=== PATIENT | female | born 1965 | race Caucasian/White ===

== ENCOUNTER 2020-07-23 14:27 | Emergency (ER) | payer OTHER, BC, SELFPAY ==
--- NOTE | ~2020-07-23 | XR_ITS ---
EXAMINATION: XR knee LT min 4V EXAM DATE: 07/23/2020 15:22 INDICATION: Initial encounter following injury, with pain of the left knee. TECHNIQUE: Left knee frontal, crosstable lateral, orthogonal oblique projections for interpretation. There is no prior study for comparison. FINDINGS: No evidence osteochondral defect or joint body in the left knee joint. There is mild left knee primary osteoarthritis. No joint effusion. There are no acute fractures or dislocations identi fied. There is no subcutaneous gas. The soft tissue is unremarkable. There are no radiopaque fore ign bodies. IMPRESSION: 1. Left knee exam without acute osseous findings. Reviewed, dictated and finalized at location A.
[2020-07-23 14:39] VITALS: BP 149/71; PULSE 63; RESP 16; TEMP 36.7; O2SAT 100
--- NOTE | 2020-07-23 15:03 | ED.LOWEXIN ---
HPI - Extremity Injury (Lower) General Chief Complaint: Extremity Injury, Lower Stated Complaint: L KNEE INJURY Time Seen by Provider: 07/23/20 15:03 Source: patient Mode of arrival: ambulatory Limitations: no limitations History of Present Illness HPI Narrative: Monica Lopez is a 54 yo female with a PMH of hypothyroid, sleep disturbance, who comes to [facility] for pain and lateral knee and lower extremity from a fall stepstool yesterday at work. Have lateral left knee pain that is exacerbated with severe flexion of the knee; states she feels like her knee is unsteady although walking appears to have a normal gait. She has been icing her knee and limiting stress on her knee Related Data Home Medications Medication Instructions Recorded Confirmed ascorbic acid (vitamin C) 500 mg PO DAILY 07/23/20 07/23/20 [Chewable Vitamin C] cetirizine [Zyrtec] 10 mg PO DAILY 07/23/20 07/23/20 ibuprofen 800 mg PO TID PRN 07/23/20 07/23/20 levothyroxine 100 mcg PO DAILY 07/23/20 07/23/20 melatonin 10 mg PO HS PRN 07/23/20 07/23/20 multivit with min-folic acid 1 tablet PO DAILY 07/23/20 07/23/20 [Adult Multivitamin Gummies] Allergies Allergy/AdvReac Type Severity Reaction Status Date / Time No Known Allergies Allergy Verified 07/23/20 14:36 Review of Systems Review of Systems: Narrative: CONSTITUTIONAL: Denies fever, chills, sweats. EYES: Denies visual changes, redness, discharge. ENT: Denies rhinorrhea, congestion, sore throat, otalgia. CARDIOVASCULAR: Denies chest pain, palpitations, edema. RESPIRATORY: Denies dyspnea, wheezing, cough GASTROINTESTINAL: Denies abdominal pain, nausea, vomiting, diarrhea. GENITOURINARY: Denies dysuria, hematuria, abnormal discharge SKIN: Denies rash or itching. NEUROLOGIC: Denies numbness, or focal weakness. PSYCHIATRIC: Denies anxiety or depression. Left lower extremity injury with left-sided knee pain PMFSH Past Medical History Medical History High cholesterol Hypothyroid Sleep disturbance Family History Family History Other High cholesterol Social History Social History (Updated 07/23/20 @ 15:12 by Gemini Roblero CNP) Smoking status: Never smoker Alcohol intake: never Comments At time of signature, I agree with nursing past medical, surgical, social and family history. There is no relevant family history pertinent to the presenting complaint. Exam Narrative: Exam Narrative: GENERAL: This is a well-nourished, well-developed patient, in mild distress. HEAD: normocephalic, atraumatic. EYES: Sclera and conjunctiva clear External ears normal. Hearing grossly intact. NOSE: External nose normal without nasal discharge, nares without redness, no rhinorrhea. THROAT: Mucous membranes moist, NECK: Neck supple, CARDIOVASCULAR: Regular rate and rhythm without murmurs, gallops, or rubs. RESPIRATORY: Clear to auscultation. Breath sounds equal bilaterally. No wheezes, rales, or rhonchi. GASTROINTESTINAL: Abdomen soft, SKIN: warm, intact with no suspicious lesions or rash, good texture and turgor. NEURO: awake, alert, and oriented to person, place and time. There were no obvious focal neurologic abnormalities. Steady gait EXTREMITIES: Normal range of motion on R, and leg pulling on left, flexion is to about 150 degrees, although patient has complaining of the knee feeling tight at this point. She has mild palpation of the patella particularly on the lateral side, patella appears stable BACK: Nontender without deformity Course Course Emergency Course: Patient comes to [facility] for fall off a stepladder yesterday at work and complaints of left knee pain post fall Left knee x-ray - results no evidence of osteochondral defect or joint body in left knee, mild osteoarthritis, no joint effusion, no acute fracture dislocation there is no acute osseous finding Patient p
== END 2020-07-23 15:50 | disposition home or self-care (01) ==
PROVIDERS: Emergency Provider Nurse Practitioner; PCP Family Medicine
DX: M25.562 Pain in left knee (principal); E78.00 Pure hypercholesterolemia, unspecified; E03.9 Hypothyroidism, unspecified
CPT/HCPCS: 73564; 99213; G0463; L1830

== ENCOUNTER → 2021-09-09 15:56 | Outpatient (CLI) | payer BC, SELFPAY ==
--- NOTE | ~2021-09-09 | CT_ITS ---
EXAMINATION: CT diagnostic chest wo con DATE: 09/09/2021 16:18 INDICATION: Lung nodule TECHNIQUE: Computed tomography (CT) of the chest was performed without intravenous contrast. The dose -length product (DLP) was 680.78 mGy-cm. Automated exposure control and iterative reconstruction tech nique were employed. COMPARISON: None FINDINGS: There is a 3 mm nodule of the right lower lobe. There is mild atelectasis. The lungs are fr ee of focal airspace opacities. There is no pleural effusion or pneumothorax. No pathologically enlar ged thoracic lymph nodes are identified. The heart size is normal. The gallbladder is surgically abse nt. There is a 13 mm cyst in the right hepatic lobe. There is moderate thoracic spondylosis. IMPRESSION: 1. 3 mm nodule of the right lower lobe, likely old granulomatous disease. If the patient has no risk factors for malignancy, no further follow up is required. If there are risk factors for malignancy ( i.e., history of smoking, asbestos or radiation exposure), consider followup CT in 12 months. Reviewed, dictated and finalized at location B. IMPRESSION: 1. 3 mm nodule of the right lower lobe, likely old granulomatous disease. If th e patient has no risk factors for malignancy, no further follow up is required. If there are risk factors for malignancy (i.e., history of smoking, asbestos or radiation exposure), consider followup CT in 12 months.
== END ==
PROVIDERS: PCP Family Medicine
DX: R91.8 Other nonspecific abnormal finding of lung field (principal)
CPT/HCPCS: 71250

== ENCOUNTER 2022-12-24 11:40 | Emergency (ER) | payer OTHER, SELFPAY ==
[2022-12-24 11:40] VITALS: BP 149/66; PULSE 78; RESP 19; TEMP 36.8; O2SAT 97
--- NOTE | 2022-12-24 11:55 | ED.WOUNDLAC ---
HPI - Wound/Laceration General Chief Complaint: Wound/Laceration Stated Complaint: Laceration finger Time Seen by Provider: 12/24/22 11:46 Source: patient Mode of arrival: ambulatory Limitations: no limitations History of Present Illness HPI narrative: this is a 57-year-old female that presents after a rotary cutter cut a the left index finger on the palmar surface the area is well approximated approximately 0.5cm in length non gaping with no bleeding currently patient not up-to-date with her tetanus vaccine. No other injuries. Onset (ago): hour(s) Location: other Extremity Location: Left: hand ( for small well-approximated laceration left index finger palmar surface) Place: home Related Data Home Medications Medication Instructions Recorded Confirmed ascorbic acid (vitamin C) 500 mg 500 mg PO DAILY 07/23/20 07/23/20 chewable tablet cetirizine 10 mg tablet (Zyrtec) 10 mg PO DAILY 07/23/20 07/23/20 ibuprofen 800 mg tablet 800 mg PO TID PRN Pain 07/23/20 07/23/20 levothyroxine 100 mcg tablet 100 mcg PO DAILY 07/23/20 07/23/20 melatonin 10 mg capsule 10 mg PO HS PRN Sleep 07/23/20 07/23/20 multivitamin with minerals-folic 1 tablet PO DAILY 07/23/20 07/23/20 acid 200 mcg chewable tablet (Adult Multivitamin Gummies) Allergies Allergy/AdvReac Type Severity Reaction Status Date / Time No Known Allergies Allergy Verified 07/24/20 11:47 [facility] Past Medical History Medical History High cholesterol Hypothyroid Sleep disturbance Family History Family History Other High cholesterol Social History Social History Smoking status: Never smoker Alcohol intake: never Exam Const: General: healthy appearing Nutritional Appearance: well nourished Orientation/consciousness: patient oriented x3 HENMT: Head: normal to inspection Resp: Effort & Inspection: normal respiratory effort Auscultation: clear to auscultation bilaterally Cardio: Rate: regular rate Rhythm: regular rhythm GI: GI Palp: Yes Soft to palpation Skin: Wounds: wounds noted Neuro: General: patient oriented x3 Extrem: General: normal to inspection Psych: Mental Status: mental status grossly normal Affect: normal affect Course Course Emergency Course: Area was evaluated no debris visualized was irrigated and cleaned Dermabond was placed and patient updated with her tetanus vaccine. Vital Signs Vital signs: Vital Signs Temperature 36.8 C 12/24/22 11:40 Pulse Rate 78 12/24/22 11:40 Respiratory Rate 19 12/24/22 11:40 Blood Pressure 149/66 H 12/24/22 11:40 Pulse Oximetry 97 12/24/22 11:40 Oxygen Delivery Room Air 12/24/22 11:40 Temperature 36.8 C 12/24/22 11:40 Pulse Rate 78 12/24/22 11:40 Respiratory Rate 12/24/22 11:40 Blood Pressure 149/66 H 12/24/22 11:40 Pulse Oximetry 97 12/24/22 11:40 Oxygen Delivery Room Air 12/24/22 11:40 Procedures Laceration Laceration 1: Date: 12/24/22 Time: 11:58 Site: hand Side (If applicable): left Size (cm): 0.5 Description: linear Depth: simple, single layer Pre-repair: wound explored and irrigated extensively ====== Skin Level ====== Skin layer closed with: dermabond ====== Subcutaneous Layer ====== ====== Muscle Layer ====== ====== Tendon Layer ====== Critical Care Time Critical Care Time Critical Care Time: No Discharge Plan Discharge Clinical Impression: Laceration Patient Disposition: Home, Self-Care Condition: Stable Instructions: Antibiotic Form, Skin Adhesive Care (ED), Laceration (ED) Additional Instructions: Follow-up with primary care physician if symptoms persist or worsen. Prescriptions: No Action ibuprofen 800 mg tablet 800 mg PO TID PRN (Reaso
[2022-12-24] MEDS: TETANUS,DIPHTHERIA,AC PERTUSSIS ADULT 0.5 ML (ADACEL) IM (11:57)
[2022-12-24 12:08] VITALS: BP 146/62; PULSE 74; RESP 20; TEMP 36.6; O2SAT 98
== END 2022-12-24 12:25 | disposition home or self-care (01) ==
LOC: CHSED 12:24
PROVIDERS: Emergency Provider Emergency Medicine; PCP Family Medicine
DX: S61.211A Laceration without foreign body of left index finger without damage to nail, initial encounter (principal); W26.8XXA Contact with other sharp object(s), not elsewhere classified, initial encounter; E03.9 Hypothyroidism, unspecified; E78.00 Pure hypercholesterolemia, unspecified; Z23 Encounter for immunization
CPT/HCPCS: 12001; 90471; 90715; 99282